=== PATIENT | male | born 1930 | race Two or more races ===

== ENCOUNTER 2018-02-15 02:32 | Emergency (ER) | payer OTHER ==
[~2018-02-15] VITALS: Ht 157.5 cm; Wt 40.8 kg
[2018-02-15] MEDS ORDERED: GLUCAGON HYDROCHLORIDE (RDNA) 1 MG VIAL IM ONE (03:30)
[2018-02-15 08:45] VITALS: BP 94/54
== END 2018-02-15 09:05 | disposition home or self-care (01) ==
LOC: ER 02:32 → EDBD 02:32 → ER 09:05
DX: R23.0 Cyanosis (principal); J44.9 Chronic obstructive pulmonary disease, unspecified; R06.00 Dyspnea, unspecified; I25.2 Old myocardial infarction; Z95.1 Presence of aortocoronary bypass graft; Z66 Do not resuscitate
CPT/HCPCS: 82962; 93005; 96372; 99283; J1610